=== PATIENT | female | born 1985 | race Two or more races ===

== ENCOUNTER → 2021-03-16 | Outpatient (CLI) | payer BC ==
[~2021-03-16] MED LIST: METHOTREXATE SODIUM (PF) 25 MG/ML 2 ML VIAL IM ONE
[2021-03-16 13:44] LABS: Anisocytosis Slight; HCT 26.6 % (34.0-46.0); HGB 8.8 gm/dL (11.4-16.0); Hypochromasia Slight; MCHC 33.1 g/dL (31.0-37.0); MCV 81.5 fL (80.0-100.0); Mean Platelet Volume 7.6; Platelet Count 283 k/uL (150-450); RBC 3.26 m/uL (3.80-5.40); RDW 16.3 % (11.5-15.5); WBC 8.4 k/uL (3.8-10.6)
[2021-03-16 13:49] LABS: ALT 19 U/L (4-34); AST 25 U/L (14-36); African American GFR (CKD) >90 (>60 ml/min/1.73 sqM); Blood Urea Nitrogen 10 mg/dL (7-17); Non-African American GFR(CKD) >90 (>60 ml/min/1.73 sqM)
[2021-03-16 13:55] VITALS: BP 152/93; PULSE 101; RESP 17; TEMP 98.3
[2021-03-16 14:06] LABS: HCG,Quantitative Serum 850.9 mIU/mL
== END | disposition home or self-care (01) ==
LOC: PROCWHC3 13:02
PROVIDERS: ATTEND Obstetrics & Gynecology
DX: O00.90 Unspecified ectopic pregnancy without intrauterine pregnancy (principal)
CPT/HCPCS: 86900; 86901; 82565; 84450; 84460; 84520; 85027; 86850; 84702; 96402; J9260

== ENCOUNTER → 2021-03-20 | Outpatient (CLI) | payer BC ==
[2021-03-20 18:24] LABS: HGB 8.9 g/dL (12.0-15.0); MCH 25.1 pg (27.0-32.0); MCHC 29.7 g/dL (32.0-37.0); MCV 84.5 fL (80.0-97.0); Mean Platelet Volume 10.6 fL (9.5-12.2); Platelet Count 379 X 10*3/uL (140-440); RBC 3.55 X 10*6/uL (4.10-5.20); RDW 16.7 % (11.5-14.5); WBC 9.79 X 10*3/uL (4.50-10.00)
== END | disposition home or self-care (01) ==
LOC: LABWHC1 14:14
PROVIDERS: ATTEND Obstetrics & Gynecology
DX: O00.109 Unspecified tubal pregnancy without intrauterine pregnancy (principal); Z3A.00 Weeks of gestation of pregnancy not specified
CPT/HCPCS: 36415; 84702; 85027

== ENCOUNTER → 2021-03-22 | Outpatient (CLI) | payer BC ==
[2021-03-22 20:51] LABS: HCT 28.6 % (37.2-46.3); HGB 8.3 g/dL (12.0-15.0); MCH 25.5 pg (27.0-32.0); MCV 87.7 fL (80.0-97.0); Mean Platelet Volume 10.5 fL (9.5-12.2); Platelet Count 377 X 10*3/uL (140-440); RBC 3.26 X 10*6/uL (4.10-5.20); RDW 17.5 % (11.5-14.5); WBC 7.84 X 10*3/uL (4.50-10.00)
[2021-03-23 02:14] LABS: African American GFR (CKD) 110.7 (60.0-200.0); Non-African American GFR(CKD) 95.5 (60.0-200.0)
[2021-03-23 02:57] LABS: HCG,Quantitative Serum 509.9 mIU/mL
== END | disposition home or self-care (01) ==
LOC: LABWHC1 14:10
PROVIDERS: ATTEND Obstetrics & Gynecology
DX: O00.109 Unspecified tubal pregnancy without intrauterine pregnancy (principal); Z3A.00 Weeks of gestation of pregnancy not specified
CPT/HCPCS: 36415; 82565; 84450; 84460; 84520; 84702; 85027

== ENCOUNTER → 2021-03-29 | Outpatient (CLI) | payer BC ==
[2021-03-29 16:39] LABS: Anisocytosis Slight; HCT 31.7 % (34.0-46.0); HGB 10.2 gm/dL (11.4-16.0); Hypochromasia Slight; MCH 26.1 pg (25.0-35.0); MCHC 32.3 g/dL (31.0-37.0); MCV 80.9 fL (80.0-100.0); Mean Platelet Volume 7.4; Platelet Count 411 k/uL (150-450); RBC 3.92 m/uL (3.80-5.40); WBC 8.2 k/uL (3.8-10.6)
== END | disposition home or self-care (01) ==
LOC: LABWHC1 16:03
PROVIDERS: ATTEND Obstetrics & Gynecology
DX: O00.90 Unspecified ectopic pregnancy without intrauterine pregnancy (principal); R10.32 Left lower quadrant pain; Z3A.00 Weeks of gestation of pregnancy not specified
CPT/HCPCS: 36415; 84702; 85027

== ENCOUNTER → 2021-04-12 | Outpatient (CLI) | payer BC ==
[2021-04-12 19:26] LABS: HCT 35.2 % (37.2-46.3); HGB 10.2 g/dL (12.0-15.0); MCH 24.4 pg (27.0-32.0); MCV 84.2 fL (80.0-97.0); Mean Platelet Volume 10.7 fL (9.5-12.2); Platelet Count 375 X 10*3/uL (140-440); RBC 4.18 X 10*6/uL (4.10-5.20); RDW 16.4 % (11.5-14.5); WBC 8.82 X 10*3/uL (4.50-10.00)
== END | disposition home or self-care (01) ==
LOC: LABWHC1 14:55
PROVIDERS: ATTEND Obstetrics & Gynecology
DX: O00.90 Unspecified ectopic pregnancy without intrauterine pregnancy (principal); Z3A.00 Weeks of gestation of pregnancy not specified
CPT/HCPCS: 36415; 84702; 85027

== ENCOUNTER → 2021-04-21 | Outpatient (CLI) | payer BC | END | disposition home or self-care (01) | LOC: LABWHC1 14:32 | PROVIDERS: ATTEND Obstetrics & Gynecology | DX: O00.90 Unspecified ectopic pregnancy without intrauterine pregnancy (principal); Z3A.00 Weeks of gestation of pregnancy not specified | CPT/HCPCS: 36415; 84702 ==

== ENCOUNTER → 2022-04-18 | Outpatient (CLI) | payer BC ==
--- NOTE | 2022-04-18 15:49 | CONS ---
CONSULTATION DATE OF SERVICE: 04/18/2022 This 36-year-old lady has [facility] for obstructive sleep apnea- hypopnea syndrome. HISTORY OF PRESENT ILLNESS/SLEEP-WAKE EVALUATION: Patient's usual sleep schedule is from 11 or 12 midnight until 6 or 6:30 a.m. basically 7 days a week. No problems with falling asleep. No TV in bedroom. She usually sleeps on the back and side positions. She has loud snoring and witnessed episodes of stopped breathing during sleep. She also wakes up from sleep with choking and gasping for air multiple times. Usually no nocturia. No history of hypnagogic hallucinations, sleep paralysis or cataplexy. During the day, the patient feels significantly sleepy. [place] Sleepiness Scale is increased at 12. She has problems with concentration and irritability. She takes naps at least one time around noon. PAST MEDICAL HISTORY: Positive for episodes of hypertension while she is in physician's office. History of ectopic . Headaches. Sinus problems. PAST SURGICAL HISTORY: , cholecystectomy. MEDICATIONS: None. SOCIAL HISTORY: Negative for smoking. Alcohol consumption rarely. FAMILY HISTORY: Hypertension hyperlipidemia, sleep apnea, diabetes. REVIEW OF SYSTEMS: Multiple awakenings from sleep, sleepiness during the day. No fevers. No double vision. No recent chest pain. No shortness of breath. No abdominal pain. No bleeding episodes. No blood in the urine. No seizure episodes. PHYSICAL EXAMINATION: GENERAL: Pleasant lady without distress. VITAL SIGNS: BP 158/105, HR 91, RR 16, height 5 feet 3 inches, weight 243.2, body mass index 43.0, temperature 98.0, oxygen saturation at room air 99%. HEENT: PERRLA, EOMI, evaluation of oropharynx showed tongue protrudes midline. Extremely low position of soft palate; Mallampati IV. NECK: Supple, no JVD. Thyroid is not palpable. Neck is wide; 17 inches in circumference. LUNGS: Clear to percussion and to auscultation. Good air exchange. No wheezing or rhonchi. HEART: S1, S2 regular. No murmurs, gallops, or rubs. ABDOMEN: Soft and nontender. Bowel sounds are present. No organomegaly appreciated. EXTREMITIES: No clubbing or cyanosis. UX DEVELOPER DESIGNER: Awake, alert, and oriented X3. Cranial nerves 2 to 7 intact. There is no fasciculation or atrophy. noted. No focal deficits observed. IMPRESSION: 1. Snoring, episodes of stopped breathing during sleep, awakenings from sleep multiple times with choking and gasping for air, extremely low position of soft palate, Mallampati IV, wide neck, 17 inches in circumference, sleepiness; obstructive sleep apnea-hypopnea syndrome. 2. Obesity. 3. Headaches. 4. History of sinus problems. 5. Status post . 6. Status post cholecystectomy. 7. Status post ectopic . 8. Hypertension in the office. PLAN: 1. Home sleep apnea test for evaluation of patient's breathing during sleep. 2. CPAP/BiPAP titration if sleep study confirms obstructive sleep apnea-hypopnea syndrome. 3. Preferable position during sleep on the side. 4. No driving if patient feels any sleepiness. 5. I will see patient for follow up visit to explain results of testing and following plan. Thank you very much for referring this patient for consultation. Sincerely, Valentin Moura MD, PhD, FAASM Diplomat of [employer] Sleep Medicine [employer] [place] [facility] Harold MMODL / IJN: [id number] /
== END ==
LOC: SLEEP 11:29
PROVIDERS: ATTEND Internal Medicine
DX: G47.33 Obstructive sleep apnea (adult) (pediatric) (principal); E66.9 Obesity, unspecified; Z87.59 Personal history of other complications of pregnancy, childbirth and the puerperium; Z90.49 Acquired absence of other specified parts of digestive tract; Z87.09 Personal history of other diseases of the respiratory system; I10 Essential (primary) hypertension; Z88.0 Allergy status to penicillin; Z88.1 Allergy status to other antibiotic agents
CPT/HCPCS: 99211